=== PATIENT | male | born 1955 ===

== ENCOUNTER → 2022-07-17 | Outpatient (CLI) | payer OTHER ==
[~2022-07-17] VITALS: Ht 170.2 cm; Wt 75.3 kg
[2022-07-17 08:41] VITALS: BP 103/60
== END | disposition home or self-care (01) ==
LOC: SRCNTR 08:40
PROVIDERS: ATTEND Internal Medicine
DX: J44.9 Chronic obstructive pulmonary disease, unspecified (principal); J30.9 Allergic rhinitis, unspecified; K21.9 Gastro-esophageal reflux disease without esophagitis; G47.33 Obstructive sleep apnea (adult) (pediatric); C76.0 Malignant neoplasm of head, face and neck
CPT/HCPCS: G0463; Z7500